=== PATIENT | male | born 1980 | race Hispanic/Latino ===

== ENCOUNTER 2021-01-13 10:48 | Inpatient (IN) | payer OTHER ==
[~2021-01-13] VITALS: Ht 175.3 cm; Wt 113.2 kg
[2021-01-13 11:08] VITALS: BP 147/80
[2021-01-13 11:23] LABS: ABG BASE EXCESS -0.1 mmol/L (-2.0-3.0); ABG HCO3 22.2 mmol/L (21.0-28.0); ABG OXYGEN SATURATION 83.8 % (95.0-99.0); ABG PCO2 30 mmHg (35-48)
[2021-01-13] MEDS ORDERED: [UNRECOGNIZED DRUG - OTHER] IV ONE (12:00)
[2021-01-13] MEDS ORDERED: METHYLPREDNISOLONE SOD SUCC 125MG/2ML VIAL IVP SCH (12:00)
[2021-01-13 12:11] LABS: HEMATOCRIT 41.9 % (42-54); LYMPHOCYTES % (AUTO) 11.5 % (21.0-51.0); MEAN CORPUSCULAR HEMOGLOBIN 28.8 pg (27.0-33.0); MEAN CORPUSCULAR HGB CONC 32.9 g/dL (32.0-36.0); MEAN CORPUSCULAR VOLUME 87.3 fL (79-99); MONOCYTES % (AUTO) 3.9 % (3.0-13.0); NEUTROPHILS % (AUTO) 84.3 % (40.0-77.0); PLATELET COUNT (AUTO) 180 K/uL (130-400); RED CELL DISTRIBUTION WIDTH 13.2 % (11.0-15.5); WHITE BLOOD COUNT (AUTO) 5.8 K/uL (4.8-10.8)
[2021-01-13 12:18] LABS: CREATININE 1.3 mg/dL (0.5-1.5); POTASSIUM 4.2 mmol/L (3.5-5.1)
[2021-01-13 12:40] LABS: ALBUMIN 3.6 g/dL (3.5-5.0); BILIRUBIN,DIRECT 0.1 mg/dL (0.0-0.3); BILIRUBIN,TOTAL 0.5 mg/dL (0.2-1.0); TOTAL PROTEIN, SERUM 8.5 g/dL (6.0-8.3)
[2021-01-13 12:50] VITALS: BP 134/69
[2021-01-13] MEDS ORDERED: AZITHROMYCIN 500MG+NS 250ML 250 ML IV SCH (13:01)
[2021-01-13] MEDS ORDERED: LACTULOSE 20 GM/30 ML UDCUP PO PRN (13:15)
[2021-01-13] MEDS ORDERED: FAMOTIDINE/PF 20 MG/2 ML VIAL IV SCH (13:15)
[2021-01-13] MEDS ORDERED: ONDANSETRON HCL 4 MG/2 ML VIAL IV PRN (13:15)
[2021-01-13] MEDS ORDERED: ACETAMINOPHEN 325 MG TAB PO PRN ×2 (13:15)
[2021-01-13] MEDS ORDERED: PHARMACY COMMUNICATION MISC SCH (13:15)
[2021-01-13 13:17] LABS: ERYTHROCYTE SEDIMENTATION RATE 57 MM/HR (0-15)
[2021-01-13 13:43] LABS: CHOLESTEROL 213 mg/dL (<200); HDL CHOLESTEROL 45 mg/dL (29-71); LDL DIRECT 145 mg/dL (0-99); TRIGLYCERIDES 171 mg/dL (30-200)
[2021-01-13] MEDS ORDERED: IOHEXOL-350 75 ML VIAL IV ONE (14:05)
[2021-01-13] MEDS ORDERED: ERGOCALCIFEROL (VITAMIN D2) 50,000 UNIT CAPSULE PO ONE (14:30)
[2021-01-13 14:56] VITALS: BP 129/73
[2021-01-13] MEDS ORDERED: COMPOUND IV REFRIGERATED 1 EACH IVSOLN MISC PRN (15:00)
[2021-01-13] MEDS ORDERED: REMDESIVIR (EUA) 520 200 MG in SODIUM CHLORIDE 0.9% 250 ML IV ONE (15:00)
[2021-01-13] MEDS: DEXAMETHASONE SOD PHOSPHATE 4 MG/ML 1ML VIAL IVP SCH (15:08)
[2021-01-13 15:50] VITALS: BP 155/72
[2021-01-13] MEDS ORDERED: SODIUM CHLORIDE 0.9% 1000ML 1,000 ML IV ONE (15:55)
[2021-01-13 16:45] LABS: TROPONIN I 0.12 ng/mL (0.00-0.06)
[2021-01-13] MEDS ORDERED: LACTATED RINGERS 1000ML 1,000 ML IV ONE (18:08)
[2021-01-13] MEDS: LACTATED RINGERS 1000ML 1,000 ML IV SCH (19:25)
[2021-01-13 20:09] VITALS: BP 149/82
[2021-01-13] MEDS ORDERED: FAMOTIDINE 20MG TAB 20 MG TAB PO SCH (21:00)
[2021-01-13] MEDS ORDERED: ENOXAPARIN SODIUM 120 MG/0.8ML SQ SCH (21:00)
[2021-01-13 22:30] LABS: TROPONIN I 0.11 ng/mL (0.00-0.06)
[2021-01-13 23:52] VITALS: BP 141/77
[2021-01-14] MEDS: LACTATED RINGERS 1000ML 1,000 ML IV SCH ×3 (00:59→21:23)
[2021-01-14] MEDS ORDERED: PHARMACY COMMUNICATION MISC SCH (01:00)
[2021-01-14 03:31] VITALS: BP 132/69
[2021-01-14 03:56] LABS: ABG OXYGEN SATURATION 98.2 % (95.0-99.0); ABG PCO2 34 mmHg (35-48)
[2021-01-14 04:16] LABS: BASOPHILS % (AUTO) 0.2 % (0.0-5.0); HEMATOCRIT 41.7 % (42-54); LYMPHOCYTES % (AUTO) 9.2 % (21.0-51.0); MEAN CORPUSCULAR HEMOGLOBIN 28.5 pg (27.0-33.0); MEAN CORPUSCULAR HGB CONC 32.6 g/dL (32.0-36.0); MEAN CORPUSCULAR VOLUME 87.2 fL (79-99); MONOCYTES % (AUTO) 5.4 % (3.0-13.0); NEUTROPHILS % (AUTO) 84.9 % (40.0-77.0); PLATELET COUNT (AUTO) 192 K/uL (130-400); RED BLOOD CELL COUNT(AUTO) 4.78 MIL/uL (4.50-6.20); RED CELL DISTRIBUTION WIDTH 13.3 % (11.0-15.5); WHITE BLOOD COUNT (AUTO) 6.4 K/uL (4.8-10.8)
[2021-01-14 04:59] LABS: ALBUMIN 3.1 g/dL (3.5-5.0); BILIRUBIN,TOTAL 0.4 mg/dL (0.2-1.0); CREATININE 1.2 mg/dL (0.5-1.5); CRP QUANTITATIVE 76.8 mg/L (0.00-9.0); POTASSIUM 4.7 mmol/L (3.5-5.1); TROPONIN I 0.12 ng/mL (0.00-0.06)
[2021-01-14] MEDS: REMDESIVIR LABS MISC SCH (06:00)
[2021-01-14 08:00] VITALS: BP 135/79
[2021-01-14] MEDS: ALBUTEROL INHALER 90MCG/INH IH SCH ×2 (08:19)
[2021-01-14] MEDS ORDERED: ALBUTEROL INHALER 90MCG/INH IH PRN (08:30)
[2021-01-14 08:42] LABS: INR 0.98 (0.85-1.15); PROTHROMBIN TIME 10.7 SEC (9.6-11.6)
[2021-01-14 08:43] LABS: PARTIAL THROMBOPLASTIN TIME 24.1 SEC (26.3-35.5)
[2021-01-14] MEDS ORDERED: ZINC SULFATE 220 CAPSULE PO SCH (09:00)
[2021-01-14] MEDS ORDERED: ENOXAPARIN SODIUM 40 MG/0.4 ML SYRINGE SQ SCH (09:00)
[2021-01-14] MEDS ORDERED: ASCORBIC ACID 500 MG TAB PO SCH (09:00)
[2021-01-14] MEDS ORDERED: DEXMEDETOMIDINE HCL 200 MCG in SODIUM CHLORIDE 0.9% 50 ML IV PRN (11:15)
[2021-01-14 12:30] VITALS: BP 148/96
[2021-01-14] MEDS ORDERED: GUAIFENESIN SUGAR-FREE 100 MG/5 ML UDCUP PO PRN (12:45)
[2021-01-14] MEDS: DEXAMETHASONE SOD PHOSPHATE 4 MG/ML 1ML VIAL IVP SCH (13:46)
[2021-01-14 14:24] LABS: ABG HCO3 21.9 mmol/L (21.0-28.0); ABG OXYGEN SATURATION 94.6 % (95.0-99.0); ABG PCO2 39 mmHg (35-48)
[2021-01-14] MEDS: DEXMEDETOMIDINE HCL 400 MCG in SODIUM CHLORIDE 0.9% 100 ML IV SCH ×2 (14:24→22:08)
[2021-01-14] MEDS ORDERED: REMDESIVIR (EUA) 520 100 MG in SODIUM CHLORIDE 0.9% 250 ML IV SCH (15:00)
[2021-01-14] MEDS: PHARMACY COMMUNICATION MISC SCH (15:58)
[2021-01-14 16:25] LABS: APPEARANCE,URINE Clear (CLEAR); BILIRUBIN,URINE Negative (NEGATIVE); COLOR,URINE Dark Yellow (YELLOW); GLUCOSE, URINE (UA) Negative (NEGATIVE); KETONES,URINE Negative (NEGATIVE); LEUKOCYTE ESTERASE ,URINE Negative (NEGATIVE); NITRATE,URINE Negative (NEGATIVE); OCCULT BLOOD,URINE Trace (NEGATIVE); PH,URINE 5.5 (5.0-8.0); PROTEIN,URINE POS 1+ mg/dL (NEGATIVE)
[2021-01-14 16:38] VITALS: BP 122/60
[2021-01-14 16:52] LABS: BACTERIA,URINE Few /HPF (None Seen); MUCUS,URINE Moderate LPF (None Seen); SQUAMOUS EPITHELIAL CELL,UR Few /HPF (0-2)
[2021-01-14] MEDS ORDERED: PERFLUTREN PROTEIN-A MICROSPHR 0.22 MG/ML VIAL IV ONE ×2 (19:30→20:20)
[2021-01-14 20:01] VITALS: BP 142/76
[2021-01-14 20:22] LABS: BILIRUBIN,DIRECT 0.2 mg/dL (0.0-0.3); BILIRUBIN,TOTAL 0.6 mg/dL (0.2-1.0); TOTAL PROTEIN, SERUM 7.4 g/dL (6.0-8.3)
[2021-01-14] MEDS ORDERED: TOCILIZUMAB 800 MG in SODIUM CHLORIDE 0.9% 100 ML IV ONE (22:30)
[2021-01-14 23:33] VITALS: BP 123/63
[2021-01-15] VITALS (15 sets, daily range): BP systolic 64–193; BP diastolic 21–108
[2021-01-15] MEDS: PHARMACY COMMUNICATION MISC SCH
[2021-01-15] MEDS: DEXMEDETOMIDINE HCL 400 MCG in SODIUM CHLORIDE 0.9% 100 ML IV SCH ×2 (04:14→08:31)
[2021-01-15 04:49] LABS: BASOPHILS % (AUTO) 0.1 % (0.0-5.0); EOSINOPHILS % (AUTO) 0.1 % (0.0-8.0); HEMATOCRIT 45.4 % (42-54); LYMPHOCYTES % (AUTO) 7.9 % (21.0-51.0); MEAN CORPUSCULAR HEMOGLOBIN 27.8 pg (27.0-33.0); MEAN CORPUSCULAR HGB CONC 31.7 g/dL (32.0-36.0); MEAN CORPUSCULAR VOLUME 87.6 fL (79-99); NEUTROPHILS % (AUTO) 87.2 % (40.0-77.0); PLATELET COUNT (AUTO) 117 K/uL (130-400); RED BLOOD CELL COUNT(AUTO) 5.18 MIL/uL (4.50-6.20); RED CELL DISTRIBUTION WIDTH 13.2 % (11.0-15.5); WHITE BLOOD COUNT (AUTO) 8.2 K/uL (4.8-10.8)
[2021-01-15 05:22] LABS: ALBUMIN 3.1 g/dL (3.5-5.0); BILIRUBIN,TOTAL 0.9 mg/dL (0.2-1.0); CREATININE 1.1 mg/dL (0.5-1.5); CRP QUANTITATIVE 116.5 mg/L (0.00-9.0); POTASSIUM 5.1 mmol/L (3.5-5.1); TOTAL PROTEIN, SERUM 7.7 g/dL (6.0-8.3)
[2021-01-15] MEDS: REMDESIVIR LABS MISC SCH (06:00)
[2021-01-15 07:20] LABS: HEPATITIS A ANTIBODY IGM Negative (Negative); HEPATITIS B CORE IGM Negative (Negative); HEPATITIS Bs ANTIGEN SCREEN P Negative (Negative)
[2021-01-15 07:20] LABS: HEPATITIS Bs ANTIGEN SCREEN P Negative (Negative)
[2021-01-15] MEDS ORDERED: PHARMACY COMMUNICATION MISC NR (07:45)
[2021-01-15 07:56] LABS: ABG BASE EXCESS -0.6 mmol/L (-2.0-3.0); ABG HCO3 23.3 mmol/L (21.0-28.0); ABG OXYGEN SATURATION 89.5 % (95.0-99.0); ABG PCO2 36 mmHg (35-48)
[2021-01-15] MEDS ORDERED: FUROSEMIDE 10 MG/ML 2ML VIAL IV SCH (08:04)
[2021-01-15] MEDS ORDERED: THIAMINE HCL 100 MG TABLET PO SCH (09:00)
[2021-01-15] MEDS ORDERED: FOLIC ACID 1 MG TABLET PO SCH (09:00)
[2021-01-15] MEDS ORDERED: ENOXAPARIN SODIUM 40 MG/0.4 ML SYRINGE SQ SCH (09:00)
[2021-01-15] MEDS ORDERED: MULTIVITAMIN TABLET PO SCH (09:00)
[2021-01-15] MEDS ORDERED: PROPOFOL 1000 MG/100 ML 100 ML IV ONE (10:37)
[2021-01-15] MEDS ORDERED: CISATRACURIUM BESYLATE 2 MG/ML 10ML VIAL IVP SCH (10:45)
[2021-01-15] MEDS ORDERED: PROPOFOL 1000 MG/100 ML IV PRN (10:45)
[2021-01-15] MEDS ORDERED: FENTANYL CITRATE PF 0.05 MG/ML 1,000 MCG in SODIUM CHLORIDE 0.9% 100 ML IVPB SCH (10:45)
[2021-01-15] MEDS ORDERED: NOREPINEPHRINE 4MG/NS 250ML 250 ML IV ONE (11:02)
[2021-01-15] MEDS ORDERED: FENTANYL 2500MCG+NS 250ML 250 ML IV SCH (11:15)
[2021-01-15] MEDS ORDERED: PROPOFOL 1000 MG/100 ML 100 ML IV SCH (11:15)
[2021-01-15] MEDS ORDERED: CISATRACURIUM BESYLATE 100 MG in SODIUM CHLORIDE 0.9% 100 ML IV SCH (11:15)
== END 2021-01-15 11:24 | DRG 871 ==
LOC: EDH 10:48 → EDHIP 10:49 → 2BH 15:23
PROVIDERS: ADMIT Family Medicine; ATTEND Family Medicine
PROC: XW033E5 Introduction of Remdesivir Anti-infective into Peripheral Vein, Percutaneous Approach, New Technology Group 5 (ICD-10-PCS; 2021-01-13)
PROC: 5A0935A Assistance with Respiratory Ventilation, Less than 24 Consecutive Hours, High Flow/Velocity Cannula (ICD-10-PCS; 2021-01-13)
PROC: XW033H5 Introduction of Tocilizumab into Peripheral Vein, Percutaneous Approach, New Technology Group 5 (ICD-10-PCS; 2021-01-14)
PROC: 5A0935A Assistance with Respiratory Ventilation, Less than 24 Consecutive Hours, High Flow/Velocity Cannula (ICD-10-PCS; 2021-01-14)
PROC: 05HM33Z Insertion of Infusion Device into Right Internal Jugular Vein, Percutaneous Approach (ICD-10-PCS; principal; 2021-01-15)
PROC: B543ZZA Ultrasonography of Right Jugular Veins, Guidance (ICD-10-PCS; 2021-01-15)
PROC: 03HY32Z Insertion of Monitoring Device into Upper Artery, Percutaneous Approach (ICD-10-PCS; 2021-01-15)
PROC: 5A09357 Assistance with Respiratory Ventilation, Less than 24 Consecutive Hours, Continuous Positive Airway Pressure (ICD-10-PCS; 2021-01-15)
PROC: 0BH17EZ Insertion of Endotracheal Airway into Trachea, Via Natural or Artificial Opening (ICD-10-PCS; 2021-01-15)
PROC: 5A1935Z Respiratory Ventilation, Less than 24 Consecutive Hours (ICD-10-PCS; 2021-01-15)
PROC: 5A0935A Assistance with Respiratory Ventilation, Less than 24 Consecutive Hours, High Flow/Velocity Cannula (ICD-10-PCS; 2021-01-15)
DX: A41.89 Other specified sepsis (principal); U07.1 COVID-19; J12.82 Pneumonia due to coronavirus disease 2019; J80 Acute respiratory distress syndrome; M62.82 Rhabdomyolysis; E66.9 Obesity, unspecified; E78.5 Hyperlipidemia, unspecified; I44.7 Left bundle-branch block, unspecified; I10 Essential (primary) hypertension; F10.20 Alcohol dependence, uncomplicated; D69.6 Thrombocytopenia, unspecified; Z68.37 Body mass index [BMI] 37.0-37.9, adult
CPT/HCPCS: 31500; 36415; 36556; 36600; 36620; 71045; 71250; 80053; 80061; 80074; 80076; 81001; 82248; 82435; 82550; 82595; 82728; 82803; 82947; 82948; 82977; 83036; 83605; 83615; 83874; 83880; 84132; 84145; 84295; 84484; 85018; 85025; 85378; 85384; 85610; 85651; 85730; 86038; 86140; 86215; 86235; 86255; 86606; 86701; 86804; 87040; 87340; 87390; 87522; 87635; 87804; 92950; 93005; 93306; 94002; C9803; G0378; J0456; J1100; J1650; J1940; J2704; J2930; J3490; J7030; J7050; J7120; Q9967